=== PATIENT | male | born 1995 | race Caucasian/White ===

== ENCOUNTER 2022-12-19 20:47 | Emergency (ER) | payer BC ==
[~2022-12-19] VITALS: Ht 167.6 cm; Wt 100.0 kg
[2022-12-19 22:29] LABS: CLARITY,URINE SLIGHTLY CLOUDY (Clear); COLOR,URINE YELLOW (Yellow); GLUCOSE, URINE NEGATIVE (Neg); KETONES,URINE TRACE mg/dl (Neg); LEUKOCYTE ESTERASE ,URINE NEGATIVE (Neg); NITRITES, URINE NEGATIVE (Neg); OCCULT BLOOD,URINE TRACE-INTACT (Neg); PH,URINE 6.5 (4.8-8.0); PROTEIN,URINE NEGATIVE (Neg); UROBILINOGEN,URINE 0.2 E.U/dL (0.2-1.0)
[2022-12-19 22:33] LABS: UA COLLECTION TYPE CLN CATCH MIDSTREAM
[2022-12-19 22:34] LABS: MUCUS STRANDS MODERATE /LPF (Neg)
[2022-12-19 22:35] LABS: BACTERIA,URINE 1+ /HPF (Neg); SQUAMOUS EPITHELIAL CELL,UR MODERATE /LPF (FEW)
[2022-12-19 22:36] LABS: AMORPHOUS URATES 1+; COARSE GRANULAR CAST 0-3 /LPF (NEGATIVE)
[2022-12-19 22:48] LABS: BASOPHILS % (AUTO) 0.3 % (0-1); EOSINOPHILS # (AUTO) 0.1 X10'3 (0-0.9); EOSINOPHILS % (AUTO) 1.9 % (0-6); HEMATOCRIT 41.3 % (42.0-52.0); HEMOGLOBIN 14.2 g/dl (14.0-17.9); LYMPHOCYTES # (AUTO) 1.4 X10'3 (1.1-4.8); LYMPHOCYTES % (AUTO) 25.3 % (21-51); MEAN CORPUSCULAR HGB CONC 34.4 g/dL (33.0-36.5); MEAN CORPUSCULAR VOLUME 84.4 FL (78-98); MEAN PLATELET VOLUME 8.6 FL (7.4-10.4); MONOCYTES # (AUTO) 0.5 X10'3 (0-0.9); MONOCYTES % (AUTO) 9.2 % (2-12); NEUTROPHILS # (AUTO) 3.5 X10'3 (1.8-7.7); NEUTROPHILS % (AUTO) 63.3 % (42-75); PLATELET COUNT 209 X10'3 (140-440); RED BLOOD COUNT 4.89 X10'6 (4.70-6.10); RED CELL DISTRIBUTION WIDTH 13.2 % (11.5-14.5); WHITE BLOOD COUNT 5.6 X10'3 (4.5-11.0)
[2022-12-19 23:03] LABS: ALANINE AMINOTRANSFERASE 25 U/L (12-78); ALBUMIN 4.3 G/DL (3.4-5.0); ALBUMIN/GLOBULIN RATIO 1.6 (1.1-1.5); ALKALINE PHOSPHATASE 46 IU/L (46-116); ANION GAP 7 (8-16); ASPARTATE AMINO TRANSFERASE 18 U/L (10-37); BILIRUBIN,TOTAL 0.5 MG/DL (0.1-1.0); BLOOD UREA NITROGEN 18 MG/DL (7-18); BUN/CREATININE RATIO 17.8 (10.0-20.0); CALCIUM 8.9 MG/DL (8.5-10.1); CHLORIDE 107 MMOL/L (99-107); CREATININE 1.01 MG/DL (0.60-1.10); GLUCOSE 75 MG/DL (70-104); POTASSIUM 3.6 MMOL/L (3.5-5.1); SODIUM 143 MMOL/L (135-145); TOTAL CARBON DIOXIDE 29.1 MMOL/L (24-32); eGFR 89 ML/MIN
[2022-12-19] MEDS ORDERED: ondansetron 4mg rapidly disintigrating tab PO ONE (23:10)
[2022-12-19] MEDS ORDERED: cephalexin 500mg capsule PO ONE (23:10)
[2022-12-19] MEDS ORDERED: CEPH-585 PO (23:18)
[2022-12-19] MEDS ORDERED: ONDA4TAB12 PO (23:18)
[2022-12-19 23:52] VITALS: BP 145/99
== END 2022-12-19 23:58 | disposition home or self-care (01) ==
LOC: ER 20:48
DX: N30.00 Acute cystitis without hematuria (principal); R42 Dizziness and giddiness; R11.2 Nausea with vomiting, unspecified
CPT/HCPCS: 36415; 70450; 80053; 81001; 83036; 85025; 87077; 87088; 87186; 99285

== ENCOUNTER 2023-03-11 16:14 | Outpatient (CLI) | payer BC ==
[~2023-03-11 16:14] MED LIST: CEPH-585 PO; ONDA4TAB12 PO
[2023-03-11 16:51] LABS: BASOPHILS % (AUTO) 0.3 % (0-1); EOSINOPHILS # (AUTO) 0.1 X10'3 (0-0.9); EOSINOPHILS % (AUTO) 1.3 % (0-6); HEMATOCRIT 41.2 % (42.0-52.0); HEMOGLOBIN 14.3 g/dl (14.0-17.9); LYMPHOCYTES # (AUTO) 1.4 X10'3 (1.1-4.8); MEAN CORPUSCULAR HEMOGLOBIN 29.5 PG (27.0-31.0); MEAN CORPUSCULAR HGB CONC 34.7 g/dL (33.0-36.5); MEAN CORPUSCULAR VOLUME 85.1 FL (78-98); MEAN PLATELET VOLUME 8.5 FL (7.4-10.4); MONOCYTES # (AUTO) 0.5 X10'3 (0-0.9); MONOCYTES % (AUTO) 7.1 % (2-12); NEUTROPHILS # (AUTO) 5.5 X10'3 (1.8-7.7); NEUTROPHILS % (AUTO) 73.3 % (42-75); PLATELET COUNT 214 X10'3 (140-440); RED BLOOD COUNT 4.84 X10'6 (4.70-6.10); RED CELL DISTRIBUTION WIDTH 13.6 % (11.5-14.5); WHITE BLOOD COUNT 7.5 X10'3 (4.5-11.0)
[2023-03-11 17:04] LABS: CLARITY,URINE CLEAR (Clear); COLOR,URINE STRAW (Yellow); GLUCOSE, URINE NEGATIVE (Neg); KETONES,URINE NEGATIVE (Neg); LEUKOCYTE ESTERASE ,URINE NEGATIVE (Neg); NITRITES, URINE NEGATIVE (Neg); OCCULT BLOOD,URINE NEGATIVE (Neg); PROTEIN,URINE NEGATIVE (Neg); UROBILINOGEN,URINE 0.2 E.U/dL (0.2-1.0)
[2023-03-11 17:09] LABS: UA COLLECTION TYPE CLN CATCH MIDSTREAM
[2023-03-11 17:15] LABS: ALANINE AMINOTRANSFERASE 29 U/L (12-78); ALBUMIN 4.5 G/DL (3.4-5.0); ALBUMIN/GLOBULIN RATIO 1.7 (1.1-1.5); ALKALINE PHOSPHATASE 51 IU/L (46-116); ANION GAP 9 (8-16); ASPARTATE AMINO TRANSFERASE 19 U/L (10-37); BILIRUBIN,TOTAL 0.6 MG/DL (0.1-1.0); BLOOD UREA NITROGEN 11 MG/DL (7-18); BUN/CREATININE RATIO 13.3 (10.0-20.0); CALCIUM 9.2 MG/DL (8.5-10.1); CHLORIDE 105 MMOL/L (99-107); CHOL/HDL RATIO 2.5 (0.00-4.99); CHOLESTEROL 155 MG/DL (0-200); CREATININE 0.83 MG/DL (0.60-1.10); GLUCOSE 89 MG/DL (70-104); HDL CHOLESTEROL 63 MG/DL (35-60); LDL CHOLESTEROL 83 MG/DL (50-100); POTASSIUM 3.6 MMOL/L (3.5-5.1); SODIUM 141 MMOL/L (135-145); TOTAL CARBON DIOXIDE 27.5 MMOL/L (24-32); TOTAL PROTEIN 7.2 G/DL (6.4-8.2); TRIGLYCERIDES 76 MG/DL (20-135); eGFR > 90 ML/MIN
== END 2023-03-11 23:59 | disposition home or self-care (01) ==
LOC: LAB 16:14
PROVIDERS: ATTEND Nurse Practitioner Family
DX: Z00.00 Encounter for general adult medical examination without abnormal findings (principal); I10 Essential (primary) hypertension; R53.83 Other fatigue; R12 Heartburn
CPT/HCPCS: 36415; 80053; 80061; 81003; 84439; 84443; 85025

== ENCOUNTER 2023-04-12 11:15 | Emergency (ER) | payer BC ==
[~2023-04-12] VITALS: Ht 167.6 cm; Wt 93.6 kg
--- NOTE | 2023-04-12 11:54 | NUR ---
RN GOING TO LUNCH. SBAR REPORT GIVEN TO BILLIE DANG.
[2023-04-12 12:44] LABS: BASOPHILS % (AUTO) 0.2 % (0-1); EOSINOPHILS % (AUTO) 0 % (0-6); HEMATOCRIT 46.5 % (42.0-52.0); HEMOGLOBIN 16.2 g/dl (14.0-17.9); LYMPHOCYTES # (AUTO) 1.3 X10'3 (1.1-4.8); LYMPHOCYTES % (AUTO) 16.3 % (21-51); MEAN CORPUSCULAR HEMOGLOBIN 29.6 PG (27.0-31.0); MEAN CORPUSCULAR HGB CONC 34.9 g/dL (33.0-36.5); MEAN CORPUSCULAR VOLUME 84.8 FL (78-98); MONOCYTES # (AUTO) 0.8 X10'3 (0-0.9); MONOCYTES % (AUTO) 10.8 % (2-12); NEUTROPHILS # (AUTO) 5.6 X10'3 (1.8-7.7); NEUTROPHILS % (AUTO) 72.7 % (42-75); PLATELET COUNT 206 X10'3 (140-440); RED BLOOD COUNT 5.48 X10'6 (4.70-6.10); WHITE BLOOD COUNT 7.7 X10'3 (4.5-11.0)
[2023-04-12 12:50] LABS: ANION GAP 14 (8-16); BLOOD UREA NITROGEN 17 MG/DL (7-18); BUN/CREATININE RATIO 14.9 (10.0-20.0); CHLORIDE 102 MMOL/L (99-107); CREATININE 1.14 MG/DL (0.60-1.10); GLUCOSE 130 MG/DL (70-104); SODIUM 141 MMOL/L (135-145); TOTAL CARBON DIOXIDE 25.4 MMOL/L (24-32)
[2023-04-12] MEDS ORDERED: ondansetron/PF 4mg/2ml inj IV ONE (12:50)
[2023-04-12] MEDS ORDERED: acetaminophen 325mg tablet PO ONE (12:50)
[2023-04-12] MEDS ORDERED: normal saline 1000ML IV soln IVB ONE (12:50)
[2023-04-12 12:51] LABS: ALANINE AMINOTRANSFERASE 23 U/L (12-78); ALBUMIN 4.5 G/DL (3.4-5.0); ALBUMIN/GLOBULIN RATIO 1.4 (1.1-1.5); ALKALINE PHOSPHATASE 44 IU/L (46-116); ASPARTATE AMINO TRANSFERASE 14 U/L (10-37); BILIRUBIN,TOTAL 0.9 MG/DL (0.1-1.0); CALCIUM 9.2 MG/DL (8.5-10.1); TOTAL PROTEIN 7.7 G/DL (6.4-8.2); eGFR 77 ML/MIN
[2023-04-12 12:55] LABS: CLARITY,URINE SLIGHTLY CLOUDY (Clear); COLOR,URINE YELLOW (Yellow); GLUCOSE, URINE NEGATIVE (Neg); KETONES,URINE NEGATIVE (Neg); LEUKOCYTE ESTERASE ,URINE TRACE (Neg); NITRITES, URINE NEGATIVE (Neg); OCCULT BLOOD,URINE NEGATIVE (Neg); PROTEIN,URINE TRACE mg/dl (Neg); UA COLLECTION TYPE CLN CATCH MIDSTREAM
[2023-04-12 13:01] LABS: MUCUS STRANDS MANY /LPF (Neg); SQUAMOUS EPITHELIAL CELL,UR MANY /LPF (FEW)
[2023-04-12 13:03] LABS: BACTERIA,URINE FEW /HPF (Neg); RBC,URINE 0-2 /HPF (0-2)
--- NOTE | 2023-04-12 13:45 | NUR ---
PER ADRIANAY TRANSIT PLANNING MANAGER BLADDER SCAN SHOWED URINE RETAINED MEASURING >200CC.
--- NOTE | 2023-04-12 14:07 | NUR ---
PER BILLIE TRISTAN ORD STREET AND RESEND URINE SAMPLE. BILLIE WILL PLACE STREET AND SEND URINE.
[2023-04-12] MEDS ORDERED: LIDOcaine 2% 10ml TOPICAL JELLY (Urojet) MM ONE (15:00)
[2023-04-12] MEDS ORDERED: LidoCAINE 2% Topical Jelly 11mL syringe MM ONE (15:10)
[2023-04-12 16:47] LABS: CLARITY,URINE CLEAR (Clear); COLOR,URINE YELLOW (Yellow); GLUCOSE, URINE NEGATIVE (Neg); KETONES,URINE NEGATIVE (Neg); LEUKOCYTE ESTERASE ,URINE NEGATIVE (Neg); NITRITES, URINE NEGATIVE (Neg); OCCULT BLOOD,URINE NEGATIVE (Neg); PROTEIN,URINE TRACE mg/dl (Neg)
[2023-04-12 16:59] VITALS: BP 110/68
[2023-04-12 17:04] LABS: BACTERIA,URINE NONE SEEN /HPF (Neg); MUCUS STRANDS FEW /LPF (Neg); RBC,URINE 0-2 /HPF (0-2); SQUAMOUS EPITHELIAL CELL,UR FEW /LPF (FEW); UA COLLECTION TYPE FOLEY CATH; WBC,URINE 0-4 /HPF (0-4)
== END 2023-04-12 19:01 | disposition home or self-care (01) ==
LOC: ER 11:15
DX: R33.9 Retention of urine, unspecified (principal); R11.0 Nausea; Z91.09 Other allergy status, other than to drugs and biological substances
CPT/HCPCS: 36415; 51702; 80053; 81001; 85025; 96361; 96374; 99285; J2405; J7030; A4314; A4340

== ENCOUNTER 2023-04-14 14:34 | Outpatient (CLI) | payer BC | END 2023-04-14 23:59 | disposition home or self-care (01) | LOC: RAD 14:34 | PROVIDERS: ATTEND Family Medicine | DX: N13.30 Unspecified hydronephrosis (principal); R33.9 Retention of urine, unspecified; N47.1 Phimosis | CPT/HCPCS: 76770 ==

== ENCOUNTER 2023-05-30 07:57 | Outpatient (CLI) | payer BC ==
[~2023-05-30] VITALS: Ht 167.6 cm; Wt 98.0 kg
[2023-05-30] MEDS ORDERED: nitroGLYCERIN 0.4mg SUBLingual tab SL PRN (08:45)
[2023-05-30] MEDS ORDERED: regadenoson 0.4mg/5ml syringe IV ONE (08:45)
[2023-05-30] MEDS ORDERED: aminophylline 250mg/10ml inj. IV PRN (08:45)
[2023-05-30] MEDS ORDERED: normal saline 500ml IV soln 500 ML IV ONE (08:45)
[2023-05-31] MEDS ORDERED: PRED20TA PO (00:10)
[2023-05-31] MEDS ORDERED: EPIN0.3P3 IM (00:12)
== END 2023-05-30 23:59 | disposition home or self-care (01) ==
LOC: RAD 07:57
PROVIDERS: ATTEND Student in an Organized Health Care Education/Training Program
DX: R16.1 Splenomegaly, not elsewhere classified (principal); N13.39 Other hydronephrosis; R31.9 Hematuria, unspecified; M25.78 Osteophyte, vertebrae
CPT/HCPCS: 74178; 78452; A9500; J2785; J7040; J0280

== ENCOUNTER 2023-05-30 08:05 | Outpatient (CLI) | payer BC ==
[2023-05-30] VITALS (7 sets, daily range): BP systolic 106–118; BP diastolic 59–71; PULSE 69–108; RESP 18; O2SAT 100
[2023-05-30] MEDS ORDERED: iohexol 300mg/ml 100ml inj. ONE (08:13)
[2023-05-30] MEDS ORDERED: regadenoson 0.4mg/5ml syringe IV ONE (09:55)
[2023-05-31] MEDS ORDERED: PRED20TA PO (00:10)
[2023-05-31] MEDS ORDERED: EPIN0.3P3 IM (00:12)
== END 2023-05-30 23:59 | disposition home or self-care (01) ==
LOC: RAD 08:05
PROVIDERS: ATTEND Internal Medicine Interventional Cardiology
DX: I08.8 Other rheumatic multiple valve diseases (principal); I20.9 Angina pectoris, unspecified; R07.9 Chest pain, unspecified
CPT/HCPCS: 93017; 93306; J2785; J3490; Q9967

== ENCOUNTER 2023-05-30 21:08 | Emergency (ER) | payer BC ==
[~2023-05-30] VITALS: Ht 167.6 cm; Wt 111.0 kg
[2023-05-30 21:13] VITALS: TEMP 98.2
[2023-05-30] MEDS ORDERED: diphenhydrAMINE 50 mg/ml inj IV ONE (21:20)
[2023-05-30] MEDS ORDERED: famotidine/PF 10 mg/ml inj IV ONE (21:20)
[2023-05-30] MEDS ORDERED: methylPREDNISolone sod succ 125mg/2ml vial IV ONE (21:55)
[2023-05-30] MEDS ORDERED: normal saline 1000ML IV soln IVB ONE (22:15)
[2023-05-30 23:06] LABS: ALANINE AMINOTRANSFERASE 19 U/L (12-78); ALBUMIN/GLOBULIN RATIO 1.4 (1.1-1.5); ALKALINE PHOSPHATASE 51 IU/L (46-116); ANION GAP 9 (8-16); ASPARTATE AMINO TRANSFERASE 14 U/L (10-37); BILIRUBIN,TOTAL 0.3 MG/DL (0.1-1.0); BLOOD UREA NITROGEN 16 MG/DL (7-18); BUN/CREATININE RATIO 18.6 (10.0-20.0); CALCIUM 8.9 MG/DL (8.5-10.1); CHLORIDE 105 MMOL/L (99-107); CREATININE 0.86 MG/DL (0.60-1.10); GLUCOSE 105 MG/DL (70-104); POTASSIUM 3.6 MMOL/L (3.5-5.1); SODIUM 142 MMOL/L (135-145); TOTAL CARBON DIOXIDE 27.9 MMOL/L (24-32); TOTAL PROTEIN 6.8 G/DL (6.4-8.2); eCRCL 116 ML/MIN; eGFR > 90 ML/MIN
[2023-05-30 23:08] LABS: BASOPHILS % (AUTO) 0.3 % (0-1); EOSINOPHILS # (AUTO) 0.1 X10'3 (0-0.9); EOSINOPHILS % (AUTO) 2.3 % (0-6); HEMATOCRIT 39.6 % (42.0-52.0); HEMOGLOBIN 13.8 g/dl (14.0-17.9); LYMPHOCYTES # (AUTO) 1.2 X10'3 (1.1-4.8); LYMPHOCYTES % (AUTO) 20.5 % (21-51); MEAN CORPUSCULAR HEMOGLOBIN 29.9 PG (27.0-31.0); MEAN CORPUSCULAR HGB CONC 34.8 g/dL (33.0-36.5); MEAN CORPUSCULAR VOLUME 85.8 FL (78-98); MEAN PLATELET VOLUME 8.5 FL (7.4-10.4); MONOCYTES # (AUTO) 0.6 X10'3 (0-0.9); MONOCYTES % (AUTO) 9.4 % (2-12); NEUTROPHILS % (AUTO) 67.5 % (42-75); PLATELET COUNT 210 X10'3 (140-440); RED BLOOD COUNT 4.61 X10'6 (4.70-6.10); RED CELL DISTRIBUTION WIDTH 13.8 % (11.5-14.5); WHITE BLOOD COUNT 5.9 X10'3 (4.5-11.0)
[2023-05-30 23:13] VITALS: BP 118/69; PULSE 68; O2SAT 100
[2023-05-30 23:26] VITALS: RESP 18
[2023-05-31] MEDS ORDERED: PRED20TA PO (00:10)
[2023-05-31] MEDS ORDERED: EPIN0.3P3 IM (00:12)
== END 2023-05-31 00:29 | disposition home or self-care (01) ==
LOC: ER 21:09
DX: R07.89 Other chest pain (principal); T78.49XA Other allergy, initial encounter; X58.XXXA Exposure to other specified factors, initial encounter; I10 Essential (primary) hypertension; Z91.09 Other allergy status, other than to drugs and biological substances; Z91.041 Radiographic dye allergy status; Z79.2 Long term (current) use of antibiotics
CPT/HCPCS: 36415; 71045; 80053; 84484; 85025; 93005; 96361; 96374; 96375; 99285; J1200; J2930; J3490; J7030; A6213

== ENCOUNTER 2023-07-15 14:40 | Day surgery (SDC) | payer BC ==
[2023-07-08 10:51] LABS: BASOPHILS % (AUTO) 0.2 % (0-1); EOSINOPHILS % (AUTO) 0.8 % (0-6); LYMPHOCYTES # (AUTO) 1.1 X10'3 (1.1-4.8); LYMPHOCYTES % (AUTO) 21.2 % (21-51); MEAN CORPUSCULAR HEMOGLOBIN 29.5 PG (27.0-31.0); MEAN CORPUSCULAR HGB CONC 34.2 g/dL (33.0-36.5); MEAN CORPUSCULAR VOLUME 86.2 FL (78-98); MEAN PLATELET VOLUME 8.4 FL (7.4-10.4); MONOCYTES # (AUTO) 0.4 X10'3 (0-0.9); MONOCYTES % (AUTO) 8.4 % (2-12); NEUTROPHILS # (AUTO) 3.5 X10'3 (1.8-7.7); NEUTROPHILS % (AUTO) 69.4 % (42-75); PRE OP HEMATOCRIT 43.3 % (42.0-52.0); PRE OP HEMOGLOBIN 14.8 g/dL (14.0-17.9); PRE OP PLATELET COUNT 218 X10'3 (140-440); RED BLOOD COUNT 5.02 X10'6 (4.70-6.10); RED CELL DISTRIBUTION WIDTH 13.6 % (11.5-14.5)
[2023-07-08 11:04] LABS: PRE OP PROTIME 11.2 SECONDS (9.0-12.0)
[2023-07-08 11:27] LABS: ALBUMIN 4.4 G/DL (3.4-5.0); ALBUMIN/GLOBULIN RATIO 1.5 (1.1-1.5); ALKALINE PHOSPHATASE 45 IU/L (46-116); CALCIUM 9.7 MG/DL (8.5-10.1); PRE OP ALT 29 U/L (30-65); PRE OP AST 15 U/L (10-37); PRE OP BILIRUB, TOTAL 0.7 MG/DL (0.0-1.0); TOTAL CARBON DIOXIDE 30.8 MMOL/L (24-32); TOTAL PROTEIN 7.3 G/DL (6.4-8.2)
[2023-07-08 11:31] LABS: BLOOD UREA NITROGEN 12 MG/DL (7-18); BUN/CREATININE RATIO 14.8 (10.0-20.0); CHLORIDE 102 MMOL/L (99-107); CREATININE 0.81 MG/DL (0.60-1.10); PRE OP ANION GAP 6 (8-16); PRE OP GLUCOSE 93 MG/DL (70-104); PRE OP SODIUM 139 MMOL/L (135-145); eGFR > 90 ML/MIN
[~2023-07-15] VITALS: Ht 167.6 cm; Wt 102.1 kg
[2023-07-15] VITALS (8 sets, daily range): BP systolic 118–139; BP diastolic 69–102; PULSE 66–83; RESP 12–19; TEMP 97.3; O2SAT 96–100
[~2023-07-15 14:40] MED LIST changes: -CEPH-585 PO; +LISI10TA27 PO; -ONDA4TAB12 PO; +cefazolin 2gm/D5W 100mL 100 ML IV ONE; +famotidine 20mg tablet PO ONE; +ringers solution, lacted 1,000 ML IV SCH
[2023-07-15] MEDS ORDERED: BUPIVAcaine/PF 2.5 mg/ml (0.25%) 30ml vial ONE (17:00)
[2023-07-15] MEDS ORDERED: LIDOcaine 1% (10mg/ml)w/preservative inj. 20ml MDV ONE (17:01)
[2023-07-15] MEDS ORDERED: bacitracin 15gm ointment TP ONE ×2 (17:01→18:22)
[2023-07-15] MEDS ORDERED: mupirocin 2% ointment 22GM ONE (17:01)
[2023-07-15] MEDS ORDERED: propofol inj 20 ML IV ONE (17:07)
[2023-07-15] MEDS ORDERED: fentaNYL/PF 50MCG/1 ML 2ML syringe ONE ×2 (17:07→17:48)
[2023-07-15] MEDS ORDERED: midazolam 1 mg/ML 2ml injection ONE (17:07)
[2023-07-15] MEDS ORDERED: LIDOcaine 2% (20mg/ml) 5ml vial ONE (17:07)
[2023-07-15] MEDS ORDERED: sevoflurane 250ml liquid IH ONE (17:20)
[2023-07-15] MEDS ORDERED: morphine 2 MG/ML inj. syringe IV PRN (17:20)
[2023-07-15] MEDS ORDERED: proCHLORperazine 10 MG/2 ml inj IV PRN (17:20)
[2023-07-15] MEDS ORDERED: meperidine/PF 25mg/ml syringe IV PRN ×3 (17:20)
[2023-07-15] MEDS ORDERED: ringers solution, lacted 1,000 ML IV SCH (17:20)
[2023-07-15] MEDS ORDERED: morphine 4 MG/ML inj SYRINge IV PRN (17:20)
[2023-07-15] MEDS ORDERED: ondansetron/PF 4mg/2ml inj IV PRN (17:20)
[2023-07-15] MEDS ORDERED: BUPIVAcaine/PF 2.5 mg/ml (0.25%) 30ml vial IJ ONE (17:49)
[2023-07-15] MEDS ORDERED: dexamethasone sod phosphate 4mg/ml inj. ONE (17:58)
[2023-07-15] MEDS ORDERED: ondansetron/PF 4mg/2ml inj ONE (17:58)
--- NOTE | 2023-07-15 19:09 | NUR ---
Received from OR via STRETCHER, accompanied by Anesthesiologist JANIYA and report given by Anesthesiolgist. PT HAD LMA IN PLACE ON ARRIVAL - REMOVED BY DR. DENSON W/IN ONE MINUTE OF ARRIVAL. PT BREATHING SHALLOWLY, MILDLY SONOROUS AT TIMES. O2 PER MASK AT 10LPM. 20G IV PATENT TO RAC. DRESSING TO PENIS IN PLACE - BACITRACIN OINTMENT COVERED W/KERLIX DRESSING. DSG D&I. PT UNRESPONSIVE - NO PAIN. Addendum: 07/15/23 at 5 by Gianna Matute RN Amended: Links added.
[2023-07-15] MEDS ORDERED: HYDROcodone/acetaminophen 5mg/325mg tablet PO PRN (19:20)
--- NOTE | 2023-07-15 20:10 | NUR ---
O2 OFF AT 1935 - MAINTAINING SAO2>98% ON RA. ATTEMPTED TO VOID AT 1945 - SAT, STOOD W/OUT LIGHTHEADEDNESS. ABLE TO VOID A FEW DROPS OF DARK YELLOW URINE. DRESSING FELL OFF DURING VOID ATTEMPT AND REPLACED. NO DRAINAGE. TAKING PO FLUIDS. BLADDER SCAN SHOWS 325 ML. AT 2009 UP OFF MONITOR AMBULATING AND DRINKING FLUIDS. DENIES ANY LIGHTHEADEDNESS; GAIT STEADY.
--- NOTE | 2023-07-15 20:29 | NUR ---
PT AWAKE AND ALERT. MONITOR SR. REPORTS ONLY MILD DISCOMFORT "INSIDE" WHEN VOIDING. UP WALKING OFF MONITOR AND DRINKING FLUIDS - ABLE TO VOID 300 ML (BLADDER SCAN WAS 325). SAO2 100% ON RA. DRESSING DRY. INSTRUCTED RE: APPLICATION OF BACITRACIN BID AND WOUND CARE PER DC INSTRUCTIONS. 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 IV REMOVED FROM R AC. DISCHARGED TO PER W/C W/OUT INCIDENT. Addendum: 07/15/23 at 2036 by Gianna Matute RN Amended: Links added.
== END 2023-07-15 20:29 | disposition home or self-care (01) ==
LOC: PAS 14:40
PROVIDERS: ATTEND Student in an Organized Health Care Education/Training Program
DX: N47.1 Phimosis (principal); Q54.8 Other hypospadias; I10 Essential (primary) hypertension; N35.819 Other urethral stricture, male, unspecified site; Z79.01 Long term (current) use of anticoagulants; Z79.899 Other long term (current) drug therapy; Z98.890 Other specified postprocedural states
CPT/HCPCS: 36415; 52281; 54150; 80053; 82948; 85025; 85610; 85730; J0690; J1100; J2250; J2405; J2704; J3010; J3490; J7030; J7120; Z7506; Z7508; Z7512; A4215; A4355; A4618; A7000

== ENCOUNTER 2023-10-22 16:45 | Emergency (ER) | payer BC ==
[~2023-10-22] VITALS: Ht 167.6 cm; Wt 102.3 kg
[~2023-10-22 16:45] MED LIST changes: -cefazolin 2gm/D5W 100mL 100 ML IV ONE; -famotidine 20mg tablet PO ONE; -ringers solution, lacted 1,000 ML IV SCH
[2023-10-22 17:23] VITALS: TEMP 97.9
[2023-10-22 17:58] LABS: BASOPHILS % (AUTO) 0.2 % (0-1); EOSINOPHILS # (AUTO) 0.1 X10'3 (0-0.9); EOSINOPHILS % (AUTO) 1.3 % (0-6); HEMATOCRIT 42.4 % (42.0-52.0); HEMOGLOBIN 14.5 g/dl (14.0-17.9); LYMPHOCYTES # (AUTO) 1.3 X10'3 (1.1-4.8); LYMPHOCYTES % (AUTO) 19.5 % (21-51); MEAN CORPUSCULAR HEMOGLOBIN 29.1 PG (27.0-31.0); MEAN CORPUSCULAR HGB CONC 34.1 g/dL (33.0-36.5); MEAN CORPUSCULAR VOLUME 85.4 FL (78-98); MEAN PLATELET VOLUME 7.9 FL (7.4-10.4); MONOCYTES # (AUTO) 0.5 X10'3 (0-0.9); MONOCYTES % (AUTO) 6.7 % (2-12); NEUTROPHILS % (AUTO) 72.3 % (42-75); PLATELET COUNT 265 X10'3 (140-440); RED BLOOD COUNT 4.97 X10'6 (4.70-6.10); RED CELL DISTRIBUTION WIDTH 12.8 % (11.5-14.5); WHITE BLOOD COUNT 6.9 X10'3 (4.5-11.0)
[2023-10-22 18:09] LABS: APTT 27 SECONDS (22-32); PROTHROMBIN TIME 10.7 SECONDS (9.0-12.0)
[2023-10-22 18:22] LABS: ALANINE AMINOTRANSFERASE 32 U/L (12-78); ALBUMIN 4.2 G/DL (3.4-5.0); ALBUMIN/GLOBULIN RATIO 1.3 (1.1-1.5); ALKALINE PHOSPHATASE 57 IU/L (46-116); ANION GAP 5 (8-16); ASPARTATE AMINO TRANSFERASE 19 U/L (10-37); BILIRUBIN,TOTAL 0.5 MG/DL (0.1-1.0); BLOOD UREA NITROGEN 15 MG/DL (7-18); BUN/CREATININE RATIO 17.2 (10.0-20.0); CALCIUM 8.8 MG/DL (8.5-10.1); CHLORIDE 104 MMOL/L (99-107); CREATININE 0.87 MG/DL (0.60-1.10); GLUCOSE 102 MG/DL (70-104); POTASSIUM 3.8 MMOL/L (3.5-5.1); SODIUM 141 MMOL/L (135-145); TOTAL CARBON DIOXIDE 32.4 MMOL/L (24-32); TOTAL PROTEIN 7.4 G/DL (6.4-8.2); eCRCL 114 ML/MIN; eGFR > 90 ML/MIN
[2023-10-22 19:00] VITALS: BP 128/73; PULSE 68; RESP 16; O2SAT 99
[2023-10-22 19:22] LABS: PRO BRAIN NATRIURETIC PEPTIDE 31 PG/ML (0-125)
== END 2023-10-22 19:25 | disposition home or self-care (01) ==
LOC: ER 16:46
DX: M79.604 Pain in right leg (principal); I10 Essential (primary) hypertension; M79.89 Other specified soft tissue disorders; Z88.5 Allergy status to narcotic agent; Z79.899 Other long term (current) drug therapy
CPT/HCPCS: 36415; 71045; 80053; 83880; 84484; 85025; 85610; 85730; 93005; 93971; 99285

== ENCOUNTER → 2023-12-05 | Outpatient (CLI) | payer BC ==
[2023-12-05 15:27] LABS: BASOPHILS % (AUTO) 0.2 % (0-1); EOSINOPHILS # (AUTO) 0.2 X10'3 (0-0.9); EOSINOPHILS % (AUTO) 2.9 % (0-6); HEMATOCRIT 40.6 % (42.0-52.0); HEMOGLOBIN 14.1 g/dl (14.0-17.9); LYMPHOCYTES # (AUTO) 1.2 X10'3 (1.1-4.8); LYMPHOCYTES % (AUTO) 20.8 % (21-51); MEAN CORPUSCULAR HEMOGLOBIN 29.6 PG (27.0-31.0); MEAN CORPUSCULAR HGB CONC 34.7 g/dL (33.0-36.5); MEAN CORPUSCULAR VOLUME 85.3 FL (78-98); MEAN PLATELET VOLUME 8.1 FL (7.4-10.4); MONOCYTES # (AUTO) 0.5 X10'3 (0-0.9); MONOCYTES % (AUTO) 7.8 % (2-12); NEUTROPHILS # (AUTO) 4.1 X10'3 (1.8-7.7); NEUTROPHILS % (AUTO) 68.3 % (42-75); PLATELET COUNT 199 X10'3 (140-440); RED BLOOD COUNT 4.76 X10'6 (4.70-6.10); RED CELL DISTRIBUTION WIDTH 13.2 % (11.5-14.5)
[2023-12-05 15:45] LABS: ALANINE AMINOTRANSFERASE 26 U/L (12-78); ALBUMIN 4.1 G/DL (3.4-5.0); ALBUMIN/GLOBULIN RATIO 1.6 (1.1-1.5); ALKALINE PHOSPHATASE 65 IU/L (46-116); ANION GAP 8 (8-16); ASPARTATE AMINO TRANSFERASE 17 U/L (10-37); BILIRUBIN,TOTAL 0.5 MG/DL (0.1-1.0); BLOOD UREA NITROGEN 23 MG/DL (7-18); BUN/CREATININE RATIO 20.5 (10.0-20.0); CALCIUM 8.4 MG/DL (8.5-10.1); CHLORIDE 108 MMOL/L (99-107); CHOL/HDL RATIO 2.5 (0.00-4.99); CHOLESTEROL 158 MG/DL (0-200); CREATININE 1.12 MG/DL (0.60-1.10); GLUCOSE 93 MG/DL (70-104); HDL CHOLESTEROL 63 MG/DL (35-60); LDL CHOLESTEROL 82 MG/DL (50-100); POTASSIUM 4.2 MMOL/L (3.5-5.1); SODIUM 144 MMOL/L (135-145); TOTAL CARBON DIOXIDE 28.2 MMOL/L (24-32); TOTAL PROTEIN 6.7 G/DL (6.4-8.2); TRIGLYCERIDES 35 MG/DL (20-135); eGFR 78 ML/MIN
== END | disposition home or self-care (01) ==
LOC: RAD 14:49
PROVIDERS: ATTEND Nurse Practitioner Family
DX: M23.321 Other meniscus derangements, posterior horn of medial meniscus, right knee (principal); M71.21 Synovial cyst of popliteal space [Baker], right knee; M25.461 Effusion, right knee; M25.561 Pain in right knee; R73.09 Other abnormal glucose; I10 Essential (primary) hypertension; R53.83 Other fatigue
CPT/HCPCS: 36415; 73721; 80053; 80061; 82607; 82746; 85025